=== PATIENT | female | born 1940 | race African-American/Black ===

== ENCOUNTER 2017-02-16 06:27 | Day surgery (SDC) | payer MEDICARE, OTHER ==
[2017-02-13 10:31] VITALS: BMI 28.2
[2017-02-16] MEDS ORDERED: LEVOFLOXACIN 500 MG IVPB 100 ML IVPB ONE (07:35)
[2017-02-16] MEDS ORDERED: SUCCINYLCHOLINE CHLORIDE 200 MG/10 ML VIAL ONE (07:49)
[2017-02-16] MEDS ORDERED: LIDOCAINE HCL/PF 2% SDV 5ML VIAL ONE (07:49)
[2017-02-16] MEDS ORDERED: PROPOFOL 20 ML ONE ×2 (07:49)
[2017-02-16] MEDS ORDERED: MIDAZOLAM HCL 2 MG/2 ML SINGLE DOSE VIAL ONE (07:49)
[2017-02-16] MEDS ORDERED: LEVOFLOXACIN 500 MG PREMIX BAG IVPB ONE (08:11)
[2017-02-16] MEDS ORDERED: ONDANSETRON 4 MG/2 ML VIAL IVPUSH PRN (08:38)
[2017-02-16] MEDS ORDERED: PROMETHAZINE HCL 25 MG/1 ML VIAL IVPUSH PRN (08:38)
[2017-02-16] MEDS ORDERED: LACTATED RINGERS SOLUTION 1,000 ML IV SCH (08:45)
[2017-02-16 09:53] VITALS: TEMP 98.4
[2017-02-16 10:49] VITALS: BP 132/63; PULSE 69
--- NOTE | 2017-02-16 13:20 | OP ---
Operative Note - Note: Operative Date: 02/16/17 Pre-Operative Diagnosis: left renal stone Operation: left eswl Findings: two lower pole stones measuring 4 mm each on left side Post-Operative Diagnosis: Same as Pre-op Surgeon: Dinesh Martinez Anesthesia: General
--- NOTE | 2017-02-17 11:11 | OP ---
DATE OF OPERATION: 02/16/2017 PREOPERATIVE DIAGNOSIS: Left renal stones. POSTOPERATIVE DIAGNOSIS: Left renal stones. PROCEDURE: Left extracorporeal shock wave lithotripsy. ATTENDING: Og Fuller MD ANESTHESIA: General. DESCRIPTION OF OPERATION: The patient was brought in the operating room and placed in supine position on the operating room table. Ultrasonography was performed. Two stones in the left lower pole were identified. Each stone measured 4 mm. General anesthesia was then administered. Levaquin was administered preoperatively as well. At this point, 2500 impulses at 20 joules of power were administered to the stone. Excellent fragmentation was noted under real-time ultrasonography and fluoroscopy. The disposition of the patient was to the recovery room. OG FULLER M.D. [id number]
== END 2017-02-16 10:48 | disposition home or self-care (01) ==
LOC: JASU-SURG 06:27
PROVIDERS: ATTEND Urology
PROC: 0TF4XZZ Fragmentation in Left Kidney Pelvis, External Approach (ICD-10-PCS; principal; 2017-02-16 08:00)
DX: N20.0 Calculus of kidney (principal)
CPT/HCPCS: 94760